=== PATIENT | female | born 1990 | race Hispanic/Latino ===

== ENCOUNTER 2019-04-28 19:40 | Observation (INO) | payer MEDICAID ==
[2019-04-28] MEDS ORDERED: LACTATED RINGERS 1,000 ML IV ONE (22:01)
[2019-04-28 22:21] LABS: Bacteria,Urine 3+ /HPF (Negative); Bilirubin,Urine NEG (Negative); Blood,Urine SM (Negative); Color,Urine Yellow (Yellow); Mucus,Urine FEW /HPF; Protein,Urine <15 mg/dL mg/dL (Negative)
[2019-04-28] MEDS: BRETHINE SUB-Q SCH ×2 (22:38→23:13)
[2019-04-29] MEDS ORDERED: LACTATED RINGERS 1,000 ML IV ONE (00:02)
[2019-04-29] MEDS ORDERED: PROCARDIA*For Tocolysis only PO ONE (00:11)
[2019-04-29] MEDS ORDERED: STADOL IV PRN (00:54)
[2019-04-29] MEDS ORDERED: LACTATED RINGERS 1,000 ML IV SCH (01:00)
[2019-04-29 01:11] LABS: Hematocrit 33.4 % (30.3-42.9); Mean Corpuscular HGB Conc 36 % (30-34); Mean Corpuscular Volume 93 fl (79-97); Platelet Count 162 K/mm3 (140-440); Red Blood Count 3.59 M/mm3 (3.65-5.03); Red Cell Distribution Width 13.1 % (13.2-15.2)
[2019-04-29] MEDS: PROCARDIA*For Tocolysis only PO SCH ×2 (06:15→12:22)
[2019-04-29] MEDS ORDERED: MACROBID PO SCH (10:00)
[2019-04-29 12:11] VITALS: BP 106/55
--- NOTE | 2019-04-29 14:05 | History and Physical Report ---
History of Present Illness Date of examination: 04/29/19 Date of admission: 04/29/19 02:19 Chief complaint: I'm having contractions History of present illness: 28 year old presents for elective repeat at 39 weeks. Pt has had an uneventful course. All labs normal. Past History Past Medical History: thyroid disease, other (amniotic band syndrome) Past Surgical History: section (x2) Family/Genetic History: none Social history: - Obstetrical History : 4 Para: 2 Spontaneous Abortions: 1 Number of Living Children: 2 Medications and Allergies Allergies Allergy/AdvReac Type Severity Reaction Status Date / Time No Known Allergies Allergy Verified 05/10/19 08:18 Home Medications Medication Instructions Recorded Confirmed Last Taken Type Vit-Fe Fumar-FA [ 1 tab PO DAILY 04/28/19 05/25/19 2 Days Ago History Vitamin] ~05/23/19 Docusate Sodium [Colace] 100 mg PO BID PRN #60 capsule 05/25/19 Unknown Rx Ferrous Sulfate [Feosol 325 MG tab] 325 mg PO BID #60 tablet 05/25/19 Unknown Rx Ibuprofen [Motrin] 800 mg PO Q8HR PRN #40 tablet 05/25/19 Unknown Rx oxyCODONE /ACETAMINOPHEN [Percocet 2 tab PO Q6H #40 tab 05/25/19 Unknown Rx 5/325] Active Meds: Active Medications Butorphanol Tartrate (Stadol) 2 mg IV Q3H PRN PRN Reason: Labor Pain Last Admin: 04/29/19 01:27 Dose: 2 mg Documented by: Lactated Ringer's (Lactated Ringers) 1,000 mls @ 125 mls/hr IV DIRECT [facility] Last Admin: 04/29/19 09:14 Dose: 125 mls/hr Documented by: Nifedipine (Procardia*For Tocolysis Only*) 10 mg PO Q6H [facility] Last Admin: 04/29/19 12:22 Dose: 10 mg Documented by: Nitrofurantoin Macrocrystals (Macrobid) 100 mg PO Q12HR [facility] Last Admin: 04/29/19 10:09 Dose: 100 mg Documented by: Terbutaline Sulfate (Brethine) 0.25 mg SUB-Q Q20MIN [facility] Stop: 04/30/19 23:01 Last Admin: 04/28/19 23:13 Dose: 0.25 mg Documented by: Review of Systems All systems: negative Genitourinary: pelvic pain, contractions - Vital Signs Vital signs: Vital Signs Pulse BP 106 H 113/73 04/28/19 20:17 04/28/19 20:17 Temp Pulse Resp BP Pulse Ox 98.5 F 71 16 106/55 98 04/29/19 12:10 04/29/19 12:11 04/29/19 12:10 04/29/19 12:10 04/29/19 12:11 - Physical Exam Breasts: Positive: deferred Cardiovascular: Regular rate, Normal S1, Normal S2 Abdomen: Positive: normal appearance, soft, normal bowel sounds. Negative: distention, tenderness Vulva: both: normal Vagina: Positive: normal moisture. Negative: discharge Cervix: Negative: lesion, discharge Uterus: Positive: normal size, normal contour Adnexa: both: normal Anus/Rectum: Positive: normal perianal skin, heme negative. Negative: rectal mass, hemorrhoids Extremities: Positive: other (shortened digits) Deep Tendon Reflex Grade: Normal +2 Results Result Diagrams: 04/29/19 01:00 Abnormal lab results 04/28/19 04/29/19 Range/Units 21:29 01:00 RBC 3.59 L (3.65-5.03) M/mm3 MCH 33 H (28-32) pg MCHC 36 H (30-34) % RDW 13.1 L (13.2-15.2) % Urine pH 8.0 H (5.0-7.0) All other labs normal. Assessment and Plan IUP at 39 weeks here for elective repeat . Consents signed and placed on chart. Will proceed with surgery.
--- NOTE | 2019-04-29 14:06 | Discharge Summary ---
Providers - Providers Date of Admission: 04/29/19 02:19 Date of discharge: 04/29/19 Attending physician: JOHNATHON NGUYEN Primary care physician: JOHNATHON NGUYEN Hospitalization Reason for admission: other ( contractions) Delivery: other Discharge diagnosis: other Hospital course: unremarkable Condition at discharge: Good Disposition: DC-01 TO HOME OR SELFCARE Plan - Provider Discharge Summary Additional instructions: [] Smoking cessation referral if applicable(refer to patient education folder for contact #) [] Refer to [facility] Booklet Call your doctor immediately for: * Fever > 100.5 * Heavy vaginal bleeding ( >1 pad per hour) * Severe persistent headache * Shortness of breath * Reddened, hot, painful area to leg or breast * Drainage or odor from incision. * Keep incision clean and dry at all times and follow doctor's instructions regarding bathing/showering - Follow up plan Follow up: JOHNATHON NGUYEN MD [Primary Care Provider] - 7 Days
== END 2019-04-29 14:18 | disposition home or self-care (01) ==
LOC: TRG 19:40 → LD 04-29 02:19
PROVIDERS: ADMIT Obstetrics & Gynecology; ATTEND Obstetrics & Gynecology
DX: O62.9 Abnormality of forces of labor, unspecified (principal); Z3A.00 Weeks of gestation of pregnancy not specified
CPT/HCPCS: 36415; 81001; 85027; 86592; 86850; 86900; 86901; 96372; 96374; G0378; J0595; J3105; J7120

== ENCOUNTER 2019-05-10 02:41 | Outpatient (CLI) | payer MEDICAID ==
[2019-05-10] MEDS ORDERED: LACTATED RINGERS 1,000 ML IV ONE (03:39)
[2019-05-10] MEDS ORDERED: BRETHINE SUB-Q ONE (03:39)
[2019-05-10 07:28] VITALS: BP 116/58
--- NOTE | 2019-05-10 07:44 | Ultrasound Report ---
ULTRASOUND BIOPHYSICAL PROFILE: History: Contractions Technique: Transabdominal ultrasound with Doppler interrogation. 2 - breathing movements 2 - movements 2 - posture and tone 2 - Qualitative amniotic fluid volume 8 - TOTAL SCORE OF POSSIBLE 8 Heart Rate (bpm) 138
--- NOTE | 2019-05-10 07:44 | Ultrasound Report ---
ULTRASOUND OB LIMITED History: Contractions Technique: Transabdominal ultrasound with Doppler interrogation. Gestation: Single Position: Cephalic Amniotic Fluid: Normal RICHARD = 11.2 cm Heart Rate: 129 BPM
[2019-05-10] MEDS ORDERED: LACTATED RINGERS 1,000 ML IV SCH (08:00)
[2019-05-10] MEDS ORDERED: MORPHINE IV ONE (09:00)
== END 2019-05-10 09:10 | disposition home or self-care (01) ==
LOC: TRG 02:41
PROVIDERS: ATTEND Obstetrics & Gynecology
DX: O62.9 Abnormality of forces of labor, unspecified (principal); Z3A.37 37 weeks gestation of pregnancy
CPT/HCPCS: 76815; 76819; 96360; 96361; 96372; J3105; J7120

== ENCOUNTER 2019-05-18 00:23 | Outpatient (CLI) | payer MEDICAID ==
[2019-05-18] MEDS ORDERED: PROCARDIA*For Tocolysis only PO ONE (02:12)
[2019-05-18] MEDS: LACTATED RINGERS 1,000 ML IV SCH ×2 (02:30→03:11)
[2019-05-18 04:35] VITALS: BP 129/83
[2019-05-18] MEDS ORDERED: TYLENOL PO ONE (04:58)
== END 2019-05-18 05:15 | disposition home or self-care (01) ==
LOC: TRG 00:23
PROVIDERS: ATTEND Obstetrics & Gynecology
DX: O62.9 Abnormality of forces of labor, unspecified (principal); O26.893 Other specified pregnancy related conditions, third trimester; M54.9 Dorsalgia, unspecified; Z3A.38 38 weeks gestation of pregnancy
CPT/HCPCS: 59025; 96360; 96361; J7120

== ENCOUNTER 2019-05-24 05:14 | Inpatient (IN) | payer MEDICAID ==
[2019-05-24] MEDS ORDERED: LACTATED RINGERS 1,000 ML ONE (05:51)
[2019-05-24] MEDS ORDERED: PEPCID IV ONE (05:57)
[2019-05-24] MEDS ORDERED: BICITRA PO ONE (05:57)
[2019-05-24] MEDS ORDERED: REGLAN IV ONE (05:57)
[2019-05-24] MEDS ORDERED: PITOCin/NS 20 UNIT/1000ML DRIP 20 UNITS/1,000 ML BAG IV SCH ×2 (06:00→10:36)
[2019-05-24] MEDS ORDERED: LACTATED RINGERS 1,000 ML IV SCH (06:00)
[2019-05-24] MEDS ORDERED: ANCEF/STERILE WATER 2 GM/20 ML 2 GM/20 ML SYRINGE IV NR (06:00)
[2019-05-24 06:20] LABS: Basophils % (Auto) 0.2 % (0.0-1.8); Eosinophils % (Auto) 0.4 % (0.0-4.3); Hematocrit 33.9 % (30.3-42.9); Hemoglobin 11.4 gm/dl (10.1-14.3); Lymphocytes # (Auto) 1.6 K/mm3 (1.2-5.4); Lymphocytes % (Auto) 13.8 % (13.4-35.0); Mean Corpuscular HGB Conc 34 % (30-34); Mean Corpuscular Volume 91 fl (79-97); Monocytes # (Auto) 0.6 K/mm3 (0.0-0.8); Monocytes % (Auto) 5.2 % (0.0-7.3); Platelet Count 145 K/mm3 (140-440); Red Blood Count 3.73 M/mm3 (3.65-5.03); Red Cell Distribution Width 13.9 % (13.2-15.2)
--- NOTE | 2019-05-24 07:23 | Anesthesia Consultation ---
Anesthesia Consult and Med Hx Date of service: 05/24/19 - Airway Anesthetic Teeth Evaluation: Good ROM Head & Neck: Adequate Mental/Hyoid Distance: Adequate Mallampati Class: Class II Intubation Access Assessment: Good - Pulmonary Exam CTA: Yes - Cardiac Exam Cardiac Exam: RRR - Pre-Operative Health Status ASA Pre-Surgery Classification: ASA2 Proposed Anesthetic Plan: Spinal - Pulmonary Hx Asthma: No COPD: No Hx Pneumonia: No - Cardiovascular System Hx Hypertension: No - Central Nervous System Hx Seizures: No Hx Psychiatric Problems: No - Endocrine Hx Renal Disease: No Hx End Stage Renal Disease: No Hx Hypothyroidism: No Hx Hyperthyroidism: No - Hematic Hx Anemia: No Hx Sickle Cell Disease: No - Other Systems Hx Alcohol Use: No
--- NOTE | 2019-05-24 07:24 | Anesthesia Day of Surgery ---
Anesthesia Day of Surgery - Day of Surgery Patient Examined: Yes Patient H&P Reviewed: Yes Patient is NPO: Yes
[2019-05-24] MEDS ORDERED: DEXMEDETOMIDINE IV ONE (07:36)
[2019-05-24] MEDS ORDERED: WATER FOR IRRIG STERILE IR ONE (07:43)
[2019-05-24] MEDS ORDERED: NACL 0.9% IR ONE (07:43)
--- NOTE | 2019-05-24 07:52 | History and Physical Report ---
History of Present Illness Date of examination: 05/24/19 Date of admission: 05/24/19 05:14 Chief complaint: I'm here for my History of present illness: Pt is a 28 year old who presents for repeat and tubal ligation. Past History Past Medical History: other (autoimmune disorder) Past Surgical History: section (x 2) - Obstetrical History Expected Date of Delivery: 05/29/19 Actual Gestation: 39 Week(s) 2 Day(s) : 4 Para: 2 Medications and Allergies Allergies Allergy/AdvReac Type Severity Reaction Status Date / Time No Known Allergies Allergy Verified 05/10/19 08:18 Home Medications Medication Instructions Recorded Confirmed Last Taken Type Vit-Fe Fumar-FA [ 1 tab PO DAILY 04/28/19 05/10/19 05/08/19 History Vitamin] Active Meds: Active Medications Acetaminophen (Tylenol) 650 mg PO Q6H [facility] Stop: 05/26/19 02:01 Hydromorphone HCl (Dilaudid) 0.5 mg IV Q4H PRN PRN Reason: breakthrough pain > 7/10 Hydromorphone HCl (Dilaudid) 0.5 mg IV Q5M PRN PRN Reason: Breakthrough Pain Stop: 05/24/19 18:00 Oxytocin/Sodium Chloride (Pitocin/Ns 20 Unit/1000ml Drip) 20 units in 1,000 mls @ 0 mls/hr IV TITR [facility] Lactated Ringer's (Lactated Ringers) 1,000 mls @ 2,250 mls/hr IV PREOP [facility] Stop: 05/25/19 06:27 Last Admin: 05/24/19 06:33 Dose: 2,250 mls/hr Documented by: Ketorolac Tromethamine (Toradol) 15 mg IV Q6H [facility] Stop: 05/26/19 03:01 Nalbuphine HCl (Nubain) 2.5 mg IV Q2H PRN PRN Reason: Itching Nalbuphine HCl (Nubain) 10 mg IV Q2H PRN PRN Reason: Pain, Moderate (4-6) Naloxone HCl (Narcan 0.4 Mg/1 Ml) 0.2 mg IV Q2MIN PRN PRN Reason: Res Rate </= 8 or 02 SAT < 92% Ondansetron HCl (Zofran) 4 mg IV Q8H PRN PRN Reason: Nausea And Vomiting Promethazine HCl (Phenergan) 25 mg PO Q6H PRN PRN Reason: Nausea And Vomiting Promethazine HCl (Phenergan) 25 mg ME Q6H PRN PRN Reason: Nausea And Vomiting Sodium Chloride (Sodium Chloride Flush Syringe 10 Ml) 10 ml IV PRN NR Review of Systems All systems: negative Gastrointestinal: abdominal pain Genitourinary: pelvic pain, contractions Rectal Exam: deferred - Vital Signs Vital signs: Vital Signs Temp Pulse Resp BP 98.1 F 86 18 138/95 05/24/19 05:32 05/24/19 05:32 05/24/19 05:32 05/24/19 05:32 Temp Pulse Resp BP Pulse Ox 98.1 F 75 18 127/81 05/24/19 05:32 05/24/19 06:47 05/24/19 05:32 05/24/19 06:47 - Physical Exam Breasts: Positive: deferred Cardiovascular: Regular rate, Normal S1, Normal S2 Lungs: Positive: Clear to auscultation, Normal air movement Abdomen: Positive: normal appearance, soft, normal bowel sounds Genitourinary (Female): Positive: normal external genitalia, normal perenium Vulva: both: normal Vagina: Positive: normal moisture Uterus: Positive: normal size, normal contour Extremities: Positive: other (several absent and/or shortened digits) Deep Tendon Reflex Grade: Normal +2 - Obstetrical FHR: auscultation normal Cervical Dilatation: 0 Uterine Contraction Intensity: Moderate Results Result Diagrams: 05/24/19 05:50 Abnormal lab results 05/24/19 Range/Units 05:50 WBC 11.3 H (4.5-11.0) K/mm3 Seg Neutrophils % 80.4 H (40.0-70.0) % Seg Neutrophils # 9.1 H (1.8-7.7) K/mm3 All other labs normal. Assessment and Plan Iup at 39.2 weeks for elective repeat . Admit for same. Consents signed and on chart. will proceed with surgery.
[2019-05-24] MEDS ORDERED: PHENERGAN PO PRN (08:00)
[2019-05-24] MEDS ORDERED: NUBAIN IV PRN ×2 (08:00)
[2019-05-24] MEDS ORDERED: TYLENOL PO SCH ×2 (08:00)
[2019-05-24] MEDS ORDERED: DILAUDID IV PRN ×2 (08:00)
[2019-05-24] MEDS ORDERED: PHENERGAN PR PRN (08:00)
[2019-05-24] MEDS ORDERED: SODIUM CHLORIDE FLUSH SYRINGE 10 ML IV PRN (08:00)
[2019-05-24] MEDS ORDERED: NARCAN 0.4 MG/1 ML IV PRN ×2 (08:00→10:36)
[2019-05-24] MEDS ORDERED: ZOFRAN IV PRN (08:00)
[2019-05-24] MEDS ORDERED: ZOFRAN ONE (08:41)
[2019-05-24] MEDS ORDERED: NACL P/F VIAL (10 ML) 10 ML ONE (08:41)
[2019-05-24] MEDS ORDERED: TORADOL IV SCH (09:00)
--- NOTE | 2019-05-24 09:06 | Procedure Note ---
OB Delivery Note - Delivery Date of Delivery: 05/24/19 Surgeon: JOHNATHON NGUYEN Estimated blood loss: other (650) - Section Preop diagnosis: repeat Postop diagnosis: same section procedure: repeat low transverse Disposition: PACU Complications: none Narrative: see op report - Infant A at 1 minute: 8 at 5 minutes: 9 Infant Gender: Male (2792 grams, 6 pounds 2ounces)
--- NOTE | 2019-05-24 09:11 | Post Anesthesia Evaluation ---
- Post Anesthesia Evaluation Airway Patent: Yes Stable Respiratory Function: Yes Nausea/Vomiting: No Temp > 96.8F: Yes Pain Manageable: Yes Adequeate Hydration: Yes Anesthesia Complications: No Block Receding Appropriately: Yes
[2019-05-24] MEDS ORDERED: SODIUM CHLORIDE FLUSH SYRINGE 10 ML IV NR (10:36)
[2019-05-24] MEDS ORDERED: D5LR 1,000 ML IV SCH (10:36)
[2019-05-24] MEDS ORDERED: MYLICON PO PRN (10:36)
[2019-05-24] MEDS ORDERED: LANSINOH TP PRN (10:36)
[2019-05-24] MEDS ORDERED: TUCKS PAD TP PRN (10:36)
[2019-05-24] MEDS: MORPHINE IV PRN ×3 (10:56→20:31)
[2019-05-24] MEDS: TORADOL IV PRN ×2 (10:57→17:22)
[2019-05-24 20:52] LABS: Hematocrit 31.8 % (30.3-42.9); Hemoglobin 10.7 gm/dl (10.1-14.3)
[2019-05-24] MEDS: NORCO 5/325 PO PRN (23:03)
[2019-05-25] MEDS: IBUPROFEN PO PRN ×3 (02:30→18:43)
[2019-05-25] MEDS: NORCO 5/325 PO PRN ×3 (05:12→21:55)
[2019-05-25] MEDS: PRENATAL VITAMIN PO SCH (10:30)
--- NOTE | 2019-05-25 10:48 | Progress Note ---
Assessment and Plan POD 1 s/p rltcs at term. Doing well. Tolerating PO. Pos flatus. Encourage ambulation. Continue routine care Subjective - Subjective Date of service: 05/25/19 Interval history: Pt is a 28 year old who presents for repeat and tubal ligation. Patient reports: appetite normal, voiding normally, pain well controlled, ambulating normally : doing well Objective - Vital Signs Latest vital signs: Vital Signs Temp Pulse Resp BP BP Pulse Ox 05/25/19 05:12 20 05/25/19 04:40 98.0 F 67 17 113/56 97 05/25/19 02:30 18 05/25/19 00:11 98.1 F 82 16 116/77 97 05/24/19 23:03 18 05/24/19 20:31 20 05/24/19 20:06 98.0 F 63 18 122/78 97 05/24/19 15:40 98.3 F 63 20 105/56 96 05/24/19 12:53 98.2 F 64 18 132/60 Intake and Output 05/24/19 05/25/19 05/25/19 22:59 06:59 14:59 Intake Total 240 600 Output Total 1200 1500 Balance -960 -900 Intake: Oral 600 Intake, Free Water 240 Output: Urine 1200 1500 Indwelling Catheter 1200 Void 1500 Other: Total, Intake Amount 120 Total, Output Amount 1200 300 # Voids Void 1 1 - Exam Cardiovascular: Present: Regular rate, Normal S1, Normal S2 Lungs: Present: Clear to auscultation, Normal air movement Abdomen: Present: normal appearance, soft, normal bowel sounds Extremities: Present: normal Incision: Present: normal, dry
--- NOTE | 2019-05-25 11:10 | Operative Report ---
Operative Report Operative Report: The operative report for patient Jennifer Ortiz Date of service May 24, 2019 Preoperative diagnosis: Intrauterine at 39.2 weeks 2. Previous x 2 Postoperative diagnosis: Same Procedure: Repeat low transverse section Surgeon: Dr. Kelsea Pringle EBL: 650 mL Urine output: 200 mL IV fluids: 900 mL LR Findings: Viable male in the vertex occiput anterior position. Weight 6 lbs. 2 oz. Apgars 8 and 9]. Otherwise normal pelvic anatomy Specimens: None Complications: None Procedure: The patient was admitted to the OR with IV running and in place. She was properly identified as herself. She was given spinal anesthesia in the oral without difficulty.. She was placed in the dorsal supine position with a leftward tilt. A Marti catheter was inserted. She was then prepped and draped in the normal sterile fashion. An Allis test was used to confirm adequate anesthesia. Once confirmed, the incision was made with the scalpel and carried to the underlying fascia using the scalpel and the Bovie. The fascia was incised in the midline and incision was extended bilaterally using the curved Thompson scissors. The fascia was then dissected from the underlying rectus muscles in a series of sharp and blunt dissection using the Thompson scissors. Muscles were in the in the midline sharply using Metzenbaum scissors and the peritoneum was entered into bluntly using the surgeon's fingers. A bladder blade was then placed into the incision to protect the bladder. Following this the bladder flap was created. Hysterotomy incision was then made in the scalpel. Upon uterine entry, the amniotic sac was ruptured for clear fluid. The was then delivered in the occiput [posterior] position. His mouth and nose were suctioned on the field. The cord was clamped and cut and he was handed to the waiting NICU personnel. The placenta was delivered manually and taken off the field. The uterus was then exteriorized and cleared of all clots and debris. The hysterotomy incision was then closed in a running locked fashion using 0 Vicryl. The abdomen was then copiously irrigated with warm normal saline. Following this the uterus was replaced into the abdominal cavity. At this point the muscles were reapproximated in the midline using individual sutures of 0 Vicryl. Following this the fascia was closed in a running fashion using 0 Vicryl. Tissue was then copiously irrigated. Skin was closed in a running fashion using 3-0 Monocryl. The sponge lap needle and instrument counts were correct 2. The patient tolerated the procedure well. She was taken to recovery in stable condition.
[2019-05-25] MEDS: MILK OF MAGNESIA PO PRN (21:44)
[2019-05-26] MEDS: IBUPROFEN PO PRN ×2 (00:57→11:46)
[2019-05-26] MEDS: NORCO 5/325 PO PRN ×2 (04:24→11:47)
--- NOTE | 2019-05-26 11:28 | Discharge Summary ---
Providers - Providers Date of Admission: 05/24/19 05:14 Date of discharge: 05/26/19 Attending physician: JOHNATHON NGUYEN Primary care physician: JOHNATHON NGUYEN Hospitalization Reason for admission: section Delivery: Procedure: repeat low transverse Procedure details: see op report Episiotomy: none Incision: normal, dry, intact complications: none Discharge diagnosis: IUP at term delivered [place] baby: male Condition at discharge: Good Disposition: DC-01 TO HOME OR SELFCARE Plan - Discharge Medications Prescriptions: Docusate Sodium [Colace] 100 mg PO BID PRN #60 capsule PRN Reason: Constipation Ferrous Sulfate [Feosol 325 MG tab] 325 mg PO BID #60 tablet Ibuprofen [Motrin] 800 mg PO Q8HR PRN #40 tablet PRN Reason: Pain, Moderate (4-6) oxyCODONE /ACETAMINOPHEN [Percocet 5/325] 2 tab PO Q6H #40 tab - Provider Discharge Summary Activity: routine, no sex for 6 weeks, no heavy lifting 4 weeks, no strenuous exercise Diet: routine Instructions: routine Additional instructions: [] Smoking cessation referral if applicable(refer to patient education folder for contact #) [] Refer to [facility] Booklet Call your doctor immediately for: * Fever > 100.5 * Heavy vaginal bleeding ( >1 pad per hour) * Severe persistent headache * Shortness of breath * Reddened, hot, painful area to leg or breast * Drainage or odor from incision. * Keep incision clean and dry at all times and follow doctor's instructions regarding bathing/showering - Follow up plan Follow up: JOHNATHON NGUYEN MD [Primary Care Provider] - 14 Days
[2019-05-26] MEDS: PRENATAL VITAMIN PO SCH (11:47)
[2019-05-26] MEDS: MILK OF MAGNESIA PO PRN (11:53)
[2019-05-26 11:56] VITALS: BP 120/71
== END 2019-05-26 15:00 | disposition home or self-care (01) | DRG 766 ==
LOC: APU 05:14 → OB 10:30
PROVIDERS: ADMIT Obstetrics & Gynecology; ATTEND Obstetrics & Gynecology
PROC: 10D00Z1 Extraction of Products of Conception, Low, Open Approach (ICD-10-PCS; principal; 2019-05-24)
DX: O34.211 Maternal care for low transverse scar from previous cesarean delivery (principal); O64.0XX0 Obstructed labor due to incomplete rotation of fetal head, not applicable or unspecified; Z3A.39 39 weeks gestation of pregnancy; Z37.0 Single live birth
CPT/HCPCS: 36415; 85014; 85018; 85025; 86592; 86850; 86900; 86901; G0378; J0690; J1885; J2270; J2405; J2590; J2765; J3490; J7120; J7121